=== PATIENT | female | born 1960 | race Caucasian/White ===

== ENCOUNTER 2017-08-01 21:22 | Emergency (ER) | payer OTHER ==
--- NOTE | 2017-08-01 21:23 | EDPHY ---
H & P HPI/ROS: HPI CHIEF COMPLAINT: Urinary frequency, dysuria HISTORY OF PRESENT ILLNESS: This patient very pleasant 57-year-old female significant past medical history for thyroid disease, presents to the emergency room with urinary frequency and dysuria that started this evening on her drive home. She thinks she may have a urinary tract infection. She denies any abdominal pain back pain fever or vomiting. Past Medical History: Ellen's thyroiditis Past Surgical History: Denies recent surgery Social History: Denies daily use drugs alcohol tobacco products. Family History: Noncontributory ROS REVIEW OF SYSTEMS: A comprehensive 10 point review of systems is otherwise negative aside from elements mentioned in the history of present illness. Exam Constitutional appears well nontoxic triage nursing summary reviewed, vital signs reviewed, awake/alert. Eyes normal conjunctivae and sclera, EOMI, PERRLA. HENT normal inspection, atraumatic, moist mucus membranes, no epistaxis, neck supple/ no meningismus, no raccoon eyes. Respiratory clear to auscultation bilaterally, normal breath sounds, no respiratory distress, no wheezing. Cardiovascular rate normal, regular rhythm, no murmur, no edema, distal pulses normal. Gastrointestinal soft, non-tender, no rebound, no guarding, normal bowel sounds, no distension, no pulsatile mass. Genitourinary no CVA tenderness. Musculoskeletal no midline vertebral tenderness, full range of motion, no calf swelling, no tenderness of extremities, no meningismus, good pulses, neurovascularly intact. Skin pink, warm, & dry, no rash, skin atraumatic. Neurologic awake, alert and oriented x 3, AAOx3, moves all 4 extremities equally, motor intact, sensory intact, CN II-XII intact, normal cerebellar, normal vision, normal speech. Psychiatric normal mood/affect. Heme/Lymph/Immune no lymphadenopathy. Differential Diagnosis: Includes but is not limited to in a particular order, UTI, cystitis, pyelonephritis Medical Decision Making: Here in emergency room this patient appears well vital signs reviewed. Nontoxic. No CVA tenderness. No abdominal pain. No vomiting. No fever. Has urinary frequency with dysuria. Will send UA for urinalysis. Will treat with Keflex and peridium. Drink lots of fluids. Also return precautions given to the patient she understands return to the emergency room if she develops worsening abdominal pain fever vomiting. Urinalysis reviewed positive for UTI. Keflex/pyridium provided. Return precautions given. Source: Patient Constitutional: Initial Vital Signs Temperature (C) 36.7 C 08/01/17 21:29 Heart Rate 97 08/01/17 21:29 Respiratory Rate 18 08/01/17 21:29 Blood Pressure 144/72 H 08/01/17 21:29 O2 Sat (%) 97 08/01/17 21:29 O2 Delivery Mode Room Air Allergies/Adverse Reactions: acetaminophen [From Vicodin] Allergy (Verified 08/01/17 21:31) hydrocodone [From Vicodin] Allergy (Verified 08/01/17 21:31) Home Medications: Medication Instructions Recorded Cephalexin [Keflex] 500 mg PO Q6H #28 cap 08/01/17 Phenazopyridine HCl [Pyridium] 200 mg PO TID #15 tab 08/01/17 Medical Decision Making - Data Points Laboratory Results: 08/01/17 21:50 Urine Color YELLOW Urine Appearance CLOUDY Urine pH 6.0 (5.0-7.5) Ur Specific [place] 1.025 (1.002-1.030) Urine Protein 2+ H (NEGATIVE) Urine Ketones NEGATIVE (NEGATIVE) Urine Blood 3+ H (NEGATIVE) Urine Nitrate NEGATIVE (NEGATIVE) Urine Bilirubin NEGATIVE (NEGATIVE) Urine Urobilinogen 0.2 EU EU (0.2-1.0) Ur Leukocyte Esterase 2+ H (NEGATIVE) Urine RBC >182 /hpf H /hpf (0-3) Urine WBC >182 /hpf H /hpf (0-3) Ur Epithelial Cells TRACE /lpf /lpf (NONE-1+) Urine Bacteria 1+ /hpf H /hpf (NONE SEEN) Hyaline Casts OCCASIONAL /lpf /lpf (0-1) Urine Mucus 2+ /lpf H /lpf (NONE-1+) Urine Glucose NEGATIVE (NEGATIVE) Medications Given: Discontinued Medications Cephalexin (Keflex 500 Mg Prepack#4) 1 btl TAKEHOME EDNOW ONE PRN Reason: Protocol Stop: 08/01/17 21:44 Last Admin: 08/01/17 21:56 Dose: 1 btl Cephalexin HCl (Keflex) 500 mg PO EDNOW ONE PRN Reason: Protocol Stop: 08/01/17 21:44 Last Admin: 08/01/17 21:55 Dose: 500 mg Phenazopyridine HCl (Pyridium) 200 mg PO EDNOW ONE Stop: 08/01/17 21:44 Last Admin: 08/01/17 21:57 Dose: 200 mg Departure - Departure Disposition: Home, Routine, Self-Care Clinical Impression: Urinary tract infection Qualifiers: Urinary tract infection type: acute cystitis Hematuria presence: with hematuria Qualified Code(s): N30.01 - Acute cystitis with hematuria Condition: Good Instructions: Cephalexin (By mouth), Urinary Tract Infection in Women (ED), Dysuria (ED) Additional Instructions: 1. Please drink lots of fluids stay well-hydrated 2. Take antibiotics as prescribed. 3. Return emergency room if he develops worsening abdominal pain fever vomiting back pain. Referrals: JORDAN AMDRIGAL [Primary Care Provider] - As per Instructions Prescriptions: Cephalexin [Keflex] 500 mg PO Q6H #28 cap Phenazopyridine HCl [Pyridium] 200 mg PO TID #15 tab
[2017-08-01 21:32] VITALS: BP 144/72; PULSE 97; RESP 18; TEMP 98.1; O2SAT 97
[2017-08-01] MEDS ORDERED: PHENAZOPYRIDINE HCL 200 MG TAB PO ONE (21:43)
[2017-08-01] MEDS ORDERED: CEPHALEXIN 500MG PREPACK#4 BTL TAKEHOME ONE (21:43)
[2017-08-01] MEDS ORDERED: CEPHALEXIN 500 MG CAP PO ONE (21:43)
[2017-08-01 21:56] LABS: COLOR YELLOW; LEUKOCYTE ESTERASE,URINE 2+ (NEGATIVE); NITRITE,URINE NEGATIVE (NEGATIVE)
[2017-08-01 22:05] LABS: BACTERIA 1+ /hpf (NONE SEEN); MUCUS 2+ /lpf (NONE-1+); RBC,URINE >182 /hpf (0-3); WBC,URINE >182 /hpf (0-3)
[2017-08-01 22:06] LABS: HYALINE CASTS OCCASIONAL /lpf (0-1)
== END 2017-08-01 22:10 | disposition home or self-care (01) ==
LOC: CED 21:22
DX: N30.01 Acute cystitis with hematuria (principal); B96.20 Unspecified Escherichia coli [E. coli] as the cause of diseases classified elsewhere
CPT/HCPCS: 81003-PO; 81015-PO

== ENCOUNTER → 2017-09-27 | Outpatient (CLI) | payer OTHER | LOC: FIMAGING 14:04 | PROVIDERS: ATTEND Family Medicine | DX: Z12.31 Encounter for screening mammogram for malignant neoplasm of breast (principal) | CPT/HCPCS: G0202 ==

== ENCOUNTER → 2018-10-02 | Outpatient (CLI) | payer OTHER | LOC: FIMAGING 15:01 | PROVIDERS: ATTEND Family Medicine | DX: Z12.31 Encounter for screening mammogram for malignant neoplasm of breast (principal) ==

== ENCOUNTER 2018-12-11 17:56 | Emergency (ER) | payer OTHER ==
--- NOTE | 2018-12-11 18:25 | EDPHY ---
H & P Stated Complaint: L middle finger laceration vs knife tonight Time Seen by Provider: 12/11/18 18:10 HPI/ROS: CHIEF COMPLAINT: Left finger laceration HISTORY OF PRESENT ILLNESS: Patient is a 58-year-old female who comes to the emergency department with a laceration to the tip of her left middle finger. She cut while preparing dinner. This happened just prior to arrival. She denies other injuries. It does not involve the finger nail or nail bed. Severity: Mild Modifying factors: None REVIEW OF SYSTEMS: Constitutional: denies: chills, fever, recent illness, recent injury EENTM: denies: blurred vision, double vision, nose congestion Respiratory: denies: cough, shortness of breath Cardiac: denies: chest pain, irregular heart rate, lightheadedness, palpitations Gastrointestinal/Abdominal: denies: abdominal pain, diarrhea, nausea, vomiting, blood streaked stools Genitourinary: denies: dysuria, frequency, hematuria, pain Musculoskeletal: denies: joint pain, muscle pain Skin: See above Neurological: denies: headache, numbness, paresthesia, tingling, dizziness, weakness Hematologic/Lymphatic: denies: blood clots, easy bleeding, easy bruising Immunologic/allergic: denies: HIV/AIDS, transplant 10 systems reviewed and negative except as noted EXAM: GENERAL: Well-appearing, well-nourished and in no acute distress. HEAD: Atraumatic, normocephalic. EYES: Pupils equal round and reactive to light, extraocular movements intact, sclera anicteric, conjunctiva are normal. ENT: TMs normal, nares patent, oropharynx clear without exudates. Moist mucous membranes. NECK: Normal range of motion, supple without lymphadenopathy or JVD. LUNGS: Breath sounds clear to auscultation bilaterally and equal. No wheezes rales or rhonchi. HEART: Regular rate and rhythm without murmurs, rubs or gallops. ABDOMEN: Soft, nontender, normoactive bowel sounds. No guarding, no rebound. No masses appreciated. BACK: No CVA tenderness, no spinal tenderness, step-offs or deformities EXTREMITIES: Normal range of motion, no pitting or edema. No clubbing or cyanosis. NEUROLOGICAL: Cranial nerves II through XII grossly intact. Normal speech, normal gait. 5/5 strength, normal movement in all extremities, normal sensation , normal reflexes PSYCH: Normal mood, normal affect. SKIN: 1.5 cm laceration to tip of left middle finger. On the radial aspect. Goes up too but does not involve the finger nail. Involves correction through the fat pad. No visible foreign bodies. Bleeding controlled. No amputation. Source: Patient Exam Limitations: No limitations - Personal History Current Tetanus Diphtheria and Acellular Pertussis (TDAP): Yes Tetanus Vaccine Date: 2017 - Medical/Surgical History Hx Asthma: No Hx Chronic Respiratory Disease: No Hx Diabetes: No Hx Cardiac Disease: No Hx Renal Disease: No Hx Cirrhosis: No Hx Alcoholism: No Hx HIV/AIDS: No Hx Splenectomy or Spleen Trauma: No Other PMH: HASHALEXSwhit - Family History Significant Family History: No pertinent family hx - Social History Smoking Status: Never smoked Alcohol Use: Sober Constitutional: Initial Vital Signs Temperature (C) 36.6 C 12/11/18 18:05 Heart Rate 77 12/11/18 18:05 Respiratory Rate 16 12/11/18 18:05 Blood Pressure 142/81 H 12/11/18 18:05 O2 Sat (%) 96 12/11/18 18:05 O2 Delivery Mode Room Air Allergies/Adverse Reactions: acetaminophen [From Vicodin] Allergy (Verified 12/11/18 18:18) hydrocodone [From Vicodin] Allergy (Verified 12/11/18 18:18) Home Medications: Medication Instructions Recorded NK [No Known Home Meds] 12/11/18 Medical Decision Making Procedures: Procedure: Laceration repair. Verbal consent was obtained from the patient. The 1.5 cm finger laceration was anesthetized with 0.5% bupivacaine digital block. The wound was irrigated copiously according to protocol, draped and explored to its base. It was approximately 1/2 cm deep. There were no deep structures involved. No tendon, nerve, or vascular injury was identified when explored through full range of motion. No foreign body was identified. The wound was repaired with 5.0 Prolene, 5 sutures, interrupted. The wound repair was simple without wound margin revisement or multiple flap alignment. The procedure was performed by myself. A dressing was then placed with sterile gauze and bacitracin. ED Course/Re-evaluation: The patient tolerated the repair well. No nail or nail bed involvement. No concerning symptoms for fractures. No foreign body. Discussed wound care and suture removal in 10 days and indications for returning. Differential Diagnosis: Partial list of the Differential diagnosis considered include but were not limited to; laceration, nail bed injury and although unlikely based on the history and physical exam, I also considered fracture, foreign body. I discussed these differential diagnoses and the plan with the patient as well as the usual and expected course. The patient understands that the diagnosis is provisional and that in medicine we are not always correct and that further workup is often warranted. Usual and customary warnings were given. All of the patient's questions were answered. The patient was instructed to return to the emergency department should the symptoms at all worsen or return, otherwise to followup with the physician as we discussed. Departure - Departure Disposition: Home, Routine, Self-Care Clinical Impression: Laceration Condition: Fair Instructions: Care For Your Stitches (ED), Laceration (ED) Additional Instructions: Have your stitches removed in 10 days Referrals: JORDAN MADRIGAL [Primary Care Provider] - As per Instructions
[2018-12-11 20:08] VITALS: BP 148/83
== END 2018-12-11 19:11 | disposition home or self-care (01) ==
LOC: CED 17:56
PROC: 0HQGXZZ Repair Left Hand Skin, External Approach (ICD-10-PCS; principal; 2018-12-11)
DX: S61.213A Laceration without foreign body of left middle finger without damage to nail, initial encounter (principal); W26.0XXA Contact with knife, initial encounter; Y93.G1 Activity, food preparation and clean up
CPT/HCPCS: 99283-ER